=== PATIENT | male | born 1995 | race Caucasian/White ===

== ENCOUNTER 2021-04-10 22:38 | Emergency (ER) | payer BC ==
[~2021-04-10] VITALS: Ht 167.6 cm; Wt 71.4 kg
[2021-04-10 22:47] VITALS: BP 130/81
== END 2021-04-10 23:40 | disposition home or self-care (01) ==
LOC: ER 22:40
DX: S70.11XA Contusion of right thigh, initial encounter (principal); S80.211A Abrasion, right knee, initial encounter; S80.212A Abrasion, left knee, initial encounter; S00.91XA Abrasion of unspecified part of head, initial encounter; V87.7XXA Person injured in collision between other specified motor vehicles (traffic), initial encounter; Y93.89 Activity, other specified; Y92.89 Other specified places as the place of occurrence of the external cause; Y99.8 Other external cause status
CPT/HCPCS: 99282